=== PATIENT | male | born 1970 | race Caucasian/White ===

== ENCOUNTER 2020-12-01 06:43 | Day surgery (SDC) | payer OTHER ==
[2020-12-01] MEDS ORDERED: Propofol 200 MG/20 ML SDV ONE ×2 (07:23→08:47)
[2020-12-01] MEDS ORDERED: fentaNYL 100 MCG/2 ML SDV ONE (07:24)
[2020-12-01] MEDS ORDERED: Midazolam 1 MG/ML 2 ML SDV ONE (07:24)
[2020-12-01] MEDS ORDERED: Sodium Chloride 0.9% 1,000 ML IV SCH (07:30)
[2020-12-01] MEDS ORDERED: Lidocaine 1% with EPINEPHrine 1:100,000 50 ML MDV ONE (08:19)
--- NOTE | 2020-12-01 13:26 | OR ---
DATE OF PROCEDURE: 12/01/2020 SURGEON: Francisco Carrera MD PROCEDURES: 1. Excision of anal skin tag x1. 2. Banding of internal hemorrhoid. 3. Colonoscopy, normal. COMPLICATIONS: None. RESEARCH PROGRAM COORDINATOR: None. ANESTHETIC: MAC. PREOPERATIVE DIAGNOSES: 1. Painful skin tag, bleeding internal hemorrhoids. 2. Gastrointestinal bleeding. POSTOPERATIVE DIAGNOSES: 1. Painful skin tag, bleeding internal hemorrhoids. 2. Gastrointestinal bleeding. FINDINGS: 1. Moderate-size skin tag. 2. Prominent internal hemorrhoid, most likely source of bleeding. 3. No other abnormalities. COMPLICATIONS: None. RESEARCH PROGRAM COORDINATOR: None. ANESTHESIA: MAC. RISKS: Risks, benefits, alternatives, and limitations including but not limited to infection, bleeding, perforation, and false positives and false negatives were explained to the patient, and they wished to proceed. PROCEDURE IN DETAIL: The patient was placed in left lateral decubitus position. The skin tag was readily identified at the 6 o'clock position. This was anesthetized with 1% lidocaine. This was transected using electrocautery. The scope was introduced and advanced atraumatically to the appendiceal orifice. A photo was taken. The scope was brought back to the ascending, transverse, and descending colon and retroflexed. The patient had a single prominent internal hemorrhoid. This was banded x1 using the endoscopic banding technique. Careful attention was not to be distal to the dentate line. No polyps, no masses, no colitis, no old or new blood. The prep was acceptable, approximately 85% to 90% of the luminal surface could be seen with solid and liquid stool remaining. Suction irrigation techniques were used to remove these. The patient tolerated the procedure well. Francisco Carrera MD /[id number]
== END 2020-12-01 10:15 | disposition home or self-care (01) ==
LOC: JP.SDS 06:43
PROVIDERS: ATTEND Surgery
DX: K64.8 Other hemorrhoids (principal); K64.4 Residual hemorrhoidal skin tags; L72.0 Epidermal cyst; G47.33 Obstructive sleep apnea (adult) (pediatric); F17.210 Nicotine dependence, cigarettes, uncomplicated; I10 Essential (primary) hypertension; E66.01 Morbid (severe) obesity due to excess calories; Z88.0 Allergy status to penicillin; Z68.34 Body mass index [BMI] 34.0-34.9, adult
CPT/HCPCS: 45398; J2250; J2704; J3010; J7030; 88304